=== PATIENT | male | born 1980 | race Two or more races ===

== ENCOUNTER 2019-05-09 22:10 | Inpatient (IN) | payer OTHER ==
[~2019-05-09] VITALS: Ht 170.2 cm; Wt 112.0 kg
[2019-05-09 22:31] LABS: Basophils # (auto) 0 uL; Basophils % (auto) 0.4 % (0.0-2.0); Eosinophils # (auto) 0 uL; Eosinophils % (auto) 0.1 % (0.0-7.0); Lymphocytes # (auto) 1.2 uL; White Blood Cell 8.9 10^3/uL (4.4-10.8)
[2019-05-09 22:33] LABS: Hematocrit 42.7 % (41.0-53.0); Hemoglobin 15.5 g/dL (13.5-17.5); Mean Corpuscular Hemoglobin 34.2 pg (28.0-32.0); Mean Corpuscular Hgb Conc. 36.3 g/dL (32.0-36.0); Mean Corpuscular Volume 94.2 fL (80.0-100.0); Monocytes # (auto) 0.6 uL; Monocytes % (auto) 6.8 % (0.0-12.0); Neutrophils % (auto) 78.7 % (37.0-80.0); Nucleated Red Blood Cells % 0.1 %; Platelet Count (auto) 182 10^3/uL (140-450); Red Blood Cells 4.53 10^6/uL (4.5-5.90); Red Cell Distribution Width 11.9 % (11.8-14.3)
[2019-05-09] MEDS ORDERED: LORazepam 2MG/ML-1ML VIAL IV ONE ×2 (22:45→23:45)
[2019-05-09 22:50] LABS: Albumin 3.9 g/dL (3.4-5.0); BUN/Creatinine Ratio 12.1; Calcium 8.9 mg/dL (8.5-10.1); Potassium 3.7 mmol/L (3.5-5.1)
[2019-05-09 22:53] LABS: Bilirubin, Total 0.5 mg/dL (0.2-1.0); Total Protein 8.1 g/dL (6.4-8.2)
[2019-05-09] MEDS ORDERED: GABAPENTIN 100 MG CAP PO ONE (23:00)
[2019-05-09] MEDS ORDERED: HYDROcodone-ACET 7.5/325MG TAB PO ONE (23:00)
[2019-05-09] MEDS ORDERED: GABAPENTIN 400 MG CAP PO ONE ×2 (23:15→23:30)
[2019-05-09] MEDS ORDERED: LORazepam 2MG/ML-1ML VIAL ONE (23:43)
[2019-05-10 00:07] LABS: Urine Bacteria NONE SEEN /hpf (None Seen); Urine Blood Negative /uL (Negative); Urine WBC <1 /hpf (0 - 3)
[2019-05-10] MEDS ORDERED: PHENYTOIN IV DILANTIN 500 MG in SODIUM CHL 0.9% 100 ML IV ONE (00:15)
[2019-05-10 00:22] LABS: Alcohol, Urine < 3.0 mg/dL (0-5); Amphetamine Screen, Urine NEGATIVE (NEGATIVE); Barbiturate Scree,Urine NEGATIVE (NEGATIVE); Benzodiazephine Screen, Urine POSITIVE (NEGATIVE); Cannabinoid Screen, Urine NEGATIVE (NEGATIVE); Cocaine Screen, Urine NEGATIVE (NEGATIVE); Opiate Scree,Urine NEGATIVE (NEGATIVE); Phencyclidine Screen, Urine NEGATIVE (NEGATIVE)
[2019-05-10] MEDS ORDERED: PHENYTOIN SODIUM 50 MG/ML 5ML INJ VIAL IV ONE (00:25)
[2019-05-10] MEDS ORDERED: HYDROcodone-ACET 10/325MG TAB PO PRN (02:00)
[2019-05-10] MEDS ORDERED: NITROGLYCERIN 0.4 MG SL TAB SL PRN (02:00)
[2019-05-10] MEDS ORDERED: MORPHINE SULF INJ 2 MG/ML SYRINGE 1ML IV PRN (02:00)
[2019-05-10] MEDS ORDERED: LORazepam 2MG/ML-1ML VIAL ONE (03:11)
[2019-05-10] MEDS ORDERED: LORazepam 2MG/ML-1ML VIAL IV PRN ×2 (03:30→15:15)
--- NOTE | 2019-05-10 03:55 | NUR ---
ms admit from ED. pt arrived via gurney awake and alert to self. accompanied by guards, pt transferred to bed, oriented to this nurse, call light usage. pt on room air no distress noted. pt updated on plan of care, no questions at this time. pt bed rails padded, bed locked, low and 2x rails up. as this nurse was out of room to page dr vasques for for orders, the two ED nurses walked out of the room as the guards had reported that pt was having seizure, this nurse retrieved 1mg ativan and administered IVP. according to shilpa convulsions lasted approx 15 secs. upon administering med pt was able to answer questions, his name and . vitals taken and within acceptable limits. guardroseanne remain at bedside, dr vasques called back and orders received. pt call light in reach, this nurse will round q1hr and prn.
--- NOTE | 2019-05-10 07:30 | NUR ---
Opening Shift Note RECEIVED REPORT FROM NOC RN. Assumed care of patient, awake and alert. No S/S of distress/SOB or pain. BED IN LOWEST, LOCKED POSITION WITH SIDERAILS UP x2 AND CALL LIGHT WITHIN REACH. Instructed on POC and to call for assist PRN, will continue to monitor for changes Q1hr and PRN.
[2019-05-10 09:00] VITALS: BP 116/90
[2019-05-10] MEDS: CALCIUM W/VIT D (600MG/400IU) TAB PO SCH ×2 (10:00→21:23)
[2019-05-10] MEDS: ALLOPURINOL 100 MG TAB PO SCH (10:00)
[2019-05-10] MEDS ORDERED: traMADol HCL 50 MG TAB PO PRN (12:00)
[2019-05-10 13:00] VITALS: BP 123/83
[2019-05-10 17:00] VITALS: BP 139/89
[2019-05-10] MEDS: HYDROcodone-ACET 10/325MG TAB PO PRN (20:53)
[2019-05-10] MEDS: PHENYTOIN SODIUM 100 MG CAP PO SCH (21:23)
[2019-05-10] MEDS: GABAPENTIN 400 MG CAP PO SCH (21:23)
--- NOTE | 2019-05-11 00:49 | NUR ---
PT APPARENTLY HAD A SEIZURE EPISODE LASTING FOR A MINUTE. PT HAD SOME DISORIENTATION AFTERWARDS V/S BP 135/83 HR 83 RR 17 O2 SAT 97% ON RA
[2019-05-11] MEDS: HYDROcodone-ACET 10/325MG TAB PO PRN ×4 (02:57→23:12)
[2019-05-11 05:11] VITALS: BP 111/67
[2019-05-11] MEDS: GABAPENTIN 400 MG CAP PO SCH ×3 (05:30→21:55)
--- NOTE | 2019-05-11 08:15 | NUR ---
OPENING SHIFT NOTE ASSUMED CARE OF PT. PT IS AWAKE AND ALERT. NO SOB OR SIGNS OF DISTRESS. C/O OF RIGHT LEG NUMBNESS AND PAIN. MD IS AWARE. INSTRUCTED ON POC. BED IN LOWEST POSITION WITH SIDE RAILS UP X2. WILL CONTINUE TO MONITOR.
[2019-05-11 09:00] VITALS: BP 131/98
[2019-05-11] MEDS: ALLOPURINOL 100 MG TAB PO SCH (10:09)
[2019-05-11] MEDS: CALCIUM W/VIT D (600MG/400IU) TAB PO SCH ×2 (10:09→21:55)
--- NOTE | 2019-05-11 12:55 | NUR ---
EEG-Electroencephalogram completed on 05/11/2019
[2019-05-11 17:00] VITALS: BP 91/35
--- NOTE | 2019-05-11 20:10 | NUR ---
open note assumed care of pt. upon entering room pt awake, alert and oriented x4. pt on room air no distress noted. pt updated on plan of care, no questions at this time. pt bed locked, low and 2x rails up. call light in reach, will round q1hr and prn.
[2019-05-11] MEDS ORDERED: LORazepam 2MG/ML-1ML VIAL IV PRN (21:15)
[2019-05-11] MEDS: PHENYTOIN SODIUM 100 MG CAP PO SCH (21:55)
[2019-05-11 22:00] VITALS: BP 127/77
[2019-05-12 05:00] VITALS: BP 117/61
[2019-05-12] MEDS: HYDROcodone-ACET 10/325MG TAB PO PRN ×3 (06:22→17:55)
[2019-05-12] MEDS: GABAPENTIN 400 MG CAP PO SCH ×3 (06:22→22:31)
[2019-05-12 08:00] VITALS: BP 119/90
--- NOTE | 2019-05-12 08:07 | NUR ---
OPENING SHIFT NOTE RESUMED CARE OF PT. PT IS AWAKE AND ALERT. NO SOB OR SIGNS OF DISTRESS. INSTRUCTED ON POC. BED IN LOWEST POSITION WITH SIDE RAILS UP X2. WILL CONTINUE TO MONITOR.
[2019-05-12] MEDS: CALCIUM W/VIT D (600MG/400IU) TAB PO SCH ×2 (09:50→22:31)
[2019-05-12] MEDS: ALLOPURINOL 100 MG TAB PO SCH (09:50)
[2019-05-12 12:00] VITALS: BP 126/84
--- NOTE | 2019-05-12 15:32 | NUR ---
LEFT VOICEMAIL FOR DR VILA REGARDING PT REQUESTING INCREASE IN PAIN MEDICATION. AWAITING CALL BACK
[2019-05-12 17:00] VITALS: BP 101/77
[2019-05-12] MEDS ORDERED: LORazepam 2MG/ML-1ML VIAL IV PRN (20:45)
[2019-05-12] MEDS: PHENYTOIN SODIUM 100 MG CAP PO SCH (22:31)
[2019-05-12] MEDS: methylPREDNISolone SOD SUCC 125 MG/2 ML VL IV SCH (22:31)
[2019-05-12 22:46] VITALS: BP 132/97
[2019-05-13] MEDS: HYDROcodone-ACET 10/325MG TAB PO PRN ×3 (00:09→12:24)
[2019-05-13 05:52] VITALS: BP 114/63
[2019-05-13] MEDS: GABAPENTIN 400 MG CAP PO SCH ×2 (06:15→13:30)
[2019-05-13 08:00] VITALS: BP 124/88
[2019-05-13] MEDS: ALLOPURINOL 100 MG TAB PO SCH (09:42)
[2019-05-13] MEDS: CALCIUM W/VIT D (600MG/400IU) TAB PO SCH (09:42)
[2019-05-13] MEDS: methylPREDNISolone SOD SUCC 125 MG/2 ML VL IV SCH (09:43)
[2019-05-13 09:58] LABS: Hepatitis A Ab IgM Negative; Hepatitis B Core IgM Negative; Hepatitis B Surface Antigen Negative (Negative)
[2019-05-13 10:02] LABS: Hepatitis C Antibody Positive (Negative)
--- NOTE | 2019-05-13 10:33 | NUR ---
Received a call from lab regarding patient has hepatitis B positive, LONI Tang) notified.
--- NOTE | 2019-05-13 11:45 | NUR ---
made aware of patient hepatitis B positive.
[2019-05-13 12:00] VITALS: BP 139/89
[2019-05-13 12:12] VITALS: BP 139/89
--- NOTE | 2019-05-13 13:50 | NUR ---
Discharge instructions given as ordered. Encourage to follow up with PMD in a [facility] as instructed. All questions and concerns addressed. Patient verbalized understanding. Medication reconciliation form completed and copy given to patient. IV removed with catheter intact, pressure dressing applied. Patient taken to vehicle via wheelchair with guards and all personal belongings, accompanied by staff and family member. No distress noted at time of departure.
== END 2019-05-13 13:50 | DRG 101 ==
LOC: EDBD 22:10 → ER 22:14 → EEVIPCON 22:14 → OVERFLOW 22:15 → EAST 05-10 03:00
PROVIDERS: ADMIT Internal Medicine; ATTEND Internal Medicine
DX: G40.401 Other generalized epilepsy and epileptic syndromes, not intractable, with status epilepticus (principal); R51 Headache; M10.9 Gout, unspecified; B19.20 Unspecified viral hepatitis C without hepatic coma; Z79.899 Other long term (current) drug therapy; Z80.3 Family history of malignant neoplasm of breast; Z91.19 Patient's noncompliance with other medical treatment and regimen; Z98.1 Arthrodesis status; M54.5 Low back pain
CPT/HCPCS: 36415; 70450; 70551; 72146; 72148; 80053; 80074; 80185; 80307; 81001; 82962; 85025; 95819; G0378

== ENCOUNTER → 2019-06-20 | Emergency (ER) | payer OTHER ==
[~2019-06-20] VITALS: Ht 182.9 cm; Wt 104.3 kg
[~2019-06-20] MED LIST: PHENYTOIN IV DILANTIN 1,500 MG in SODIUM CHL 0.9% 250 ML IV ONE; PHENYTOIN SODIUM 50 MG/ML 2ML VIAL IV ONE; PHENYTOIN SODIUM 50 MG/ML 5ML INJ VIAL IV ONE
[2019-06-20 01:26] LABS: Basophils # (auto) 0 uL; Basophils % (auto) 0.4 % (0.0-2.0); Eosinophils # (auto) 0 uL; Eosinophils % (auto) 0.1 % (0.0-7.0); Hematocrit 41.3 % (41.0-53.0); Hemoglobin 14.6 g/dL (13.5-17.5); Lymphocytes % (auto) 23.8 % (10.0-50.0); Mean Corpuscular Hemoglobin 33.7 pg (28.0-32.0); Mean Corpuscular Hgb Conc. 35.3 g/dL (32.0-36.0); Mean Corpuscular Volume 95.5 fL (80.0-100.0); Monocytes # (auto) 0.6 uL; Neutrophils # (auto) 5.8 uL; Neutrophils % (auto) 68.7 % (37.0-80.0); Platelet Count (auto) 193 10^3/uL (140-450); Red Blood Cells 4.32 10^6/uL (4.5-5.90); Red Cell Distribution Width 13.2 % (11.8-14.3); White Blood Cell 8.4 10^3/uL (4.4-10.8)
[2019-06-20 01:47] LABS: Albumin 3.9 g/dL (3.4-5.0); Anion Gap 4 (5-15); BUN/Creatinine Ratio 12.1; Blood Alcohol < 3.0 mg/dL (0-5); Blood Urea Nitrogen 11 mg/dL (7-18); Calcium 8.3 mg/dL (8.5-10.1); Carbon Dioxide 27 mmol/L (21-32); Chloride 108 mmol/L (98-107); GFR African American 119 mL/min; GFR Non-African American 99 mL/min; Glucose 101 mg/dL (74-106); Potassium 3.8 mmol/L (3.5-5.1); Sodium 139 mmol/L (136-145)
[2019-06-20 01:52] LABS: Phenytoin (Dilantin) 2.1 ug/mL (10-20); Salicylate < 1.7 mg/dL (2.8-20.0)
[2019-06-20 01:56] LABS: Alanine Aminotransferase 104 U/L (16-61); Alkaline Phosphatase 82 U/L (45-117); Aspartate Aminotransferase 57 U/L (15-37); Bilirubin, Total 0.3 mg/dL (0.2-1.0); Total Protein 7.8 g/dL (6.4-8.2)
[2019-06-20 02:11] LABS: Acetaminophen < 2.0 ug/mL (10-30)
[2019-06-20 04:00] VITALS: BP 108/77
== END | disposition home or self-care (01) ==
LOC: EDUNIT# 06-19 23:46 → EDBD → ER 00:01 → EEVIPCON 00:01
DX: G40.909 Epilepsy, unspecified, not intractable, without status epilepticus (principal); Z91.19 Patient's noncompliance with other medical treatment and regimen
CPT/HCPCS: 36415; 70450; 80053; 80185; 80320; 80329; 85025; 96365; 99284; J1165; J7050